=== PATIENT | male | born 2000 | race Caucasian/White ===

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

== ENCOUNTER 2023-03-11 02:26 | Emergency (ER) | payer SELFPAY ==
[2023-03-11] MEDS ORDERED: Sodium Chloride 0.9% 10 ML Syringe FLUSH PRN (02:56)
[2023-03-11] MEDS ORDERED: Sodium Chloride 0.9% 2.5 ML Syringe FLUSH PRN (02:56)
[2023-03-11 03:25] LABS: APPEARANCE,URINE CLEAR; BILIRUBIN,URINE NEGATIVE (NEGATIVE); COLOR,URINE YELLOW; GLUCOSE,URINE NEGATIVE (NEGATIVE); KETONES,URINE NEGATIVE (NEGATIVE); LEUKOCYTE ESTERASE,URINE NEGATIVE (NEGATIVE); NITRITE,URINE NEGATIVE (NEGATIVE); OCCULT BLOOD,URINE NEGATIVE (NEGATIVE); PROTEIN,URINE NEGATIVE (NEGATIVE); UROBILINOGEN,URINE 0.2 EU/dL (<2.0)
[2023-03-11 03:27] LABS: BASOPHILS ABSOLUTE AUTO 0.06 K/uL (0.00-0.20); BASOPHILS PERCENT AUTO 0.7 % (0.0-1.0); EOSINOPHILS ABSOLUTE AUTO 0.39 K/uL (0.00-0.45); EOSINOPHILS PERCENT AUTO 4.4 % (0.0-6.0); HEMOGLOBIN 15.9 g/dL (14.0-18.0); IMMATURE GRAN ABSOLUTE AUTO 0.03 K/uL (0.00-0.05); IMMATURE GRAN PERCENT AUTO 0.3 % (0.0-0.4); LYMPHOCYTES ABSOLUTE AUTO 2.91 K/uL (1.00-4.80); LYMPHOCYTES PERCENT AUTO 33.2 % (24.0-44.0); MEAN CORPUSCULAR HEMOGLOBIN 28.8 pg (28.0-32.0); MEAN CORPUSCULAR HGB CONC 35.3 g/dL (32.0-36.0); MEAN CORPUSCULAR VOLUME 81.5 fL (83.0-99.0); MONOCYTES PERCENT AUTO 6.8 % (0.0-8.0); NEUTROPHILS ABSOLUTE AUTO 4.78 K/uL (1.80-7.70); NEUTROPHILS PERCENT AUTO 54.6 % (41.0-71.0); PLATELET COUNT,PLT 274 K/uL (150-400); RED BLOOD CELL COUNT 5.52 M/uL (4.52-5.90); WHITE BLOOD CELL COUNT,WBC 8.77 K/uL (3.9-11.3)
[2023-03-11 03:32] LABS: BACTERIA,URINE RARE (NEGATIVE); CALCIUM OXALATE CRYSTALS,URINE OCCASIONAL (NEGATIVE); EPITHELIAL CELLS,URINE RARE (NONE-FEW); RBC,URINE NONE SEEN (0-2/HPF); WBC,URINE 0-1 (0-5/HPF)
[2023-03-11 04:02] LABS: A/G RATIO 1.3 (0.9-1.6); BILIRUBIN TOTAL 0.6 mg/dL (0.2-1.0); CALCIUM 8.7 mg/dL (8.5-10.1); CARBON DIOXIDE,CO2 27.9 mmol/L (21.0-32.0); EST CRCL DRUG DOSING (CG) 129.33 mL/min; POTASSIUM,K 4.3 mmol/L (3.5-5.1); PROTEIN TOTAL,TP 7.1 g/dL (6.4-8.2)
[2023-03-11] MEDS ORDERED: Iopamidol 755 MG/ML 500 ML Multipack Bottle IVPUSH STA (04:33)
== END 2023-03-11 06:11 | disposition home or self-care (01) ==
LOC: MW.ED 02:26
DX: R10.11 Right upper quadrant pain (principal); R10.31 Right lower quadrant pain
CPT/HCPCS: 36415; 74177; 80053; 81001; 83690; 85025; 87086; 99284; J3490; Q9967

== ENCOUNTER 2023-03-26 12:12 | Inpatient (IN) | payer SELFPAY ==
[2023-03-26 14:22] LABS: BASOPHILS ABSOLUTE AUTO 0.05 K/uL (0.00-0.20); BASOPHILS PERCENT AUTO 0.5 % (0.0-1.0); EOSINOPHILS ABSOLUTE AUTO 0.23 K/uL (0.00-0.45); EOSINOPHILS PERCENT AUTO 2.1 % (0.0-6.0); HEMATOCRIT 47.9 % (42.0-52.0); IMMATURE GRAN ABSOLUTE AUTO 0.04 K/uL (0.00-0.05); IMMATURE GRAN PERCENT AUTO 0.4 % (0.0-0.4); LYMPHOCYTES ABSOLUTE AUTO 2.01 K/uL (1.00-4.80); LYMPHOCYTES PERCENT AUTO 18.3 % (24.0-44.0); MEAN CORPUSCULAR HEMOGLOBIN 28.6 pg (28.0-32.0); MEAN CORPUSCULAR HGB CONC 35.5 g/dL (32.0-36.0); MEAN CORPUSCULAR VOLUME 80.5 fL (83.0-99.0); MEAN PLATELET VOLUME 9.7 fL (9.4-12.4); MONOCYTES ABSOLUTE AUTO 0.64 K/uL (0.00-0.80); MONOCYTES PERCENT AUTO 5.8 % (0.0-8.0); NEUTROPHILS ABSOLUTE AUTO 8.04 K/uL (1.80-7.70); NEUTROPHILS PERCENT AUTO 72.9 % (41.0-71.0); PLATELET COUNT,PLT 302 K/uL (150-400); RED BLOOD CELL COUNT 5.95 M/uL (4.52-5.90); WHITE BLOOD CELL COUNT,WBC 11.01 K/uL (3.9-11.3)
[2023-03-26 14:52] LABS: A/G RATIO 1.1 (0.9-1.6); ALBUMIN 4.2 g/dL (3.4-5.0); BILIRUBIN TOTAL 1.5 mg/dL (0.2-1.0); CALCIUM 9.5 mg/dL (8.5-10.1); CARBON DIOXIDE,CO2 27.8 mmol/L (21.0-32.0); EST CRCL DRUG DOSING (CG) 129.33 mL/min; POTASSIUM,K 4.1 mmol/L (3.5-5.1); PROTEIN TOTAL,TP 7.9 g/dL (6.4-8.2)
[2023-03-26] MEDS: Piperacillin/Tazobactam 3.375 GM in Sodium Chloride 0.9% 100 ML IV SCH (17:11)
[2023-03-26] MEDS ORDERED: diphenhydrAMINE 50 MG/ML SDV IVPUSH PRN (17:33)
[2023-03-26] MEDS ORDERED: Sodium Chloride 0.9% 20 ML SDV IV PRN (17:33)
[2023-03-26] MEDS ORDERED: Sodium Chloride 0.9% 10 ML Syringe FLUSH PRN (17:33)
[2023-03-26] MEDS ORDERED: HYDROmorphone 2 MG/ML Syringe IVPUSH PRN (17:33)
[2023-03-26] MEDS ORDERED: Sodium Chloride 0.9% 2.5 ML Syringe FLUSH PRN (17:33)
[2023-03-26] MEDS: Lactated Ringers 1,000 ML IV SCH (18:44)
[2023-03-27] MEDS: Piperacillin/Tazobactam 4.5 GM in Sodium Chloride 0.9% 100 ML IV SCH (01:03)
[2023-03-27 06:36] LABS: BASOPHILS ABSOLUTE AUTO 0.05 K/uL (0.00-0.20); BASOPHILS PERCENT AUTO 0.8 % (0.0-1.0); EOSINOPHILS ABSOLUTE AUTO 0.34 K/uL (0.00-0.45); EOSINOPHILS PERCENT AUTO 5.5 % (0.0-6.0); HEMATOCRIT 42.8 % (42.0-52.0); HEMOGLOBIN 15.2 g/dL (14.0-18.0); IMMATURE GRAN ABSOLUTE AUTO 0.01 K/uL (0.00-0.05); IMMATURE GRAN PERCENT AUTO 0.2 % (0.0-0.4); LYMPHOCYTES ABSOLUTE AUTO 2.19 K/uL (1.00-4.80); LYMPHOCYTES PERCENT AUTO 35.7 % (24.0-44.0); MEAN CORPUSCULAR HEMOGLOBIN 29.1 pg (28.0-32.0); MEAN CORPUSCULAR HGB CONC 35.5 g/dL (32.0-36.0); MEAN PLATELET VOLUME 9.9 fL (9.4-12.4); MONOCYTES ABSOLUTE AUTO 0.45 K/uL (0.00-0.80); MONOCYTES PERCENT AUTO 7.3 % (0.0-8.0); NEUTROPHILS PERCENT AUTO 50.5 % (41.0-71.0); PLATELET COUNT,PLT 228 K/uL (150-400); RED BLOOD CELL COUNT 5.22 M/uL (4.52-5.90); WHITE BLOOD CELL COUNT,WBC 6.14 K/uL (3.9-11.3)
[2023-03-27 07:00] LABS: A/G RATIO 1.1 (0.9-1.6); ALBUMIN 3.5 g/dL (3.4-5.0); BILIRUBIN TOTAL 1.5 mg/dL (0.2-1.0); CALCIUM 8.9 mg/dL (8.5-10.1); CARBON DIOXIDE,CO2 30.8 mmol/L (21.0-32.0); CREATININE 1.2 mg/dL (0.8-1.3); EST CRCL DRUG DOSING (CG) 107.78 mL/min; PROTEIN TOTAL,TP 6.6 g/dL (6.4-8.2)
[2023-03-27] MEDS ORDERED: Bupivacaine 0.5% 30 ML SDV ONE ×2 (08:17→10:59)
[2023-03-27] MEDS ORDERED: fentaNYL 100 MCG/2 ML SDV ONE (08:26)
[2023-03-27] MEDS ORDERED: Propofol 200 MG/20 ML SDV ONE (08:26)
[2023-03-27] MEDS ORDERED: dexmedeTOMIDine HCl 200 MCG/2 ML SDV ONE (08:29)
[2023-03-27] MEDS ORDERED: Water For Injection, Sterile 20 ML ONE (08:29)
[2023-03-27] MEDS ORDERED: Rocuronium Bromide 50 MG/5 ML Syringe ONE ×2 (08:30→10:44)
[2023-03-27] MEDS ORDERED: Bupivacaine 0.25% 30 ML SDV ONE (08:32)
[2023-03-27] MEDS ORDERED: Bupivacaine 0.5%/EPINEPHrine 1:200,000 30 ML SDV ONE (08:32)
[2023-03-27] MEDS ORDERED: Ketorolac 30 MG/ML SDV ONE ×2 (09:15→11:24)
[2023-03-27] MEDS ORDERED: Indocyanine Green 25 MG SDV ONE (09:15)
[2023-03-27] MEDS ORDERED: Dexamethasone 4 MG/ML 5 ML MDV ONE (09:15)
[2023-03-27] MEDS ORDERED: Magnesium Sulfate (4.06 MEQ/ML) 5 GM/10 ML SDV ONE (09:22)
[2023-03-27] MEDS ORDERED: fentaNYL 250 MCG/5 ML SDV ONE (10:03)
[2023-03-27] MEDS ORDERED: Ketamine 500 mg/10 ML MDV ONE (10:21)
[2023-03-27] MEDS ORDERED: Bupivacaine 0.5% 10 ML SDV ONE (10:59)
[2023-03-27] MEDS ORDERED: Sugammadex Sodium 200 MG/2 ML VIAL IV ONE (11:24)
[2023-03-27] MEDS: Cyclobenzaprine 10 MG Tab PO SCH (13:45)
[2023-03-27] MEDS: Ondansetron 4 MG/2 ML SDV IVPUSH PRN (13:46)
[2023-03-27] MEDS: Sodium Chloride 0.9% 1,000 ML IV SCH (13:55)
[2023-03-27] MEDS: Ketorolac 10 MG Tab PO SCH (18:10)
[2023-03-28 06:08] LABS: HEMATOCRIT 38.5 % (42.0-52.0); HEMOGLOBIN 13.6 g/dL (14.0-18.0); MEAN CORPUSCULAR HEMOGLOBIN 28.5 pg (28.0-32.0); MEAN CORPUSCULAR HGB CONC 35.3 g/dL (32.0-36.0); MEAN CORPUSCULAR VOLUME 80.7 fL (83.0-99.0); PLATELET COUNT,PLT 256 K/uL (150-400); RED BLOOD CELL COUNT 4.77 M/uL (4.52-5.90); WHITE BLOOD CELL COUNT,WBC 9.62 K/uL (3.9-11.3)
[2023-03-28 06:32] LABS: ALBUMIN 3.1 g/dL (3.4-5.0); BILIRUBIN TOTAL 0.9 mg/dL (0.2-1.0); CALCIUM 8.4 mg/dL (8.5-10.1); CARBON DIOXIDE,CO2 25.9 mmol/L (21.0-32.0); CREATININE 0.9 mg/dL (0.8-1.3); EST CRCL DRUG DOSING (CG) 143.7 mL/min; POTASSIUM,K 4.2 mmol/L (3.5-5.1); PROTEIN TOTAL,TP 6.1 g/dL (6.4-8.2)
[2023-03-28] MEDS: Multivitamin Tab PO SCH (09:52)
[2023-03-28] MEDS: Bisacodyl 5 MG Tab PO SCH (09:52)
[2023-03-28] MEDS: Acetaminophen/HYDROcodone 325-5 MG Tab PO PRN (16:47)
== END 2023-03-29 13:45 | disposition home or self-care (01) | DRG 416 ==
LOC: MW.ED 12:12 → MW.MS 17:48 → OBSVTOIN 03-27 11:01 → MW.MS 03-27 11:05
PROVIDERS: ADMIT Surgery; ATTEND Surgery
PROC: 0FJ44ZZ Inspection of Gallbladder, Percutaneous Endoscopic Approach (ICD-10-PCS; 2023-03-27)
PROC: 0FT40ZZ Resection of Gallbladder, Open Approach (ICD-10-PCS; principal; 2023-03-27 08:06)
DX: K81.0 Acute cholecystitis (principal)
CPT/HCPCS: 36415; 76705; 76705-26; 80053; 85025; 85027; 93010; 96361; 96365; 96376; 99284; 99285-25; A9270-GY; G0378; J0131; J0665; J1100; J1885; J2405; J2543; J2704; J3010; J3475; J3490; J7030; J7120